=== PATIENT | female | born 1960 | race Caucasian/White ===

== ENCOUNTER 2016-08-06 08:43 | Day surgery (SDC) | payer OTHER ==
[2016-08-06] MEDS ORDERED: LACTATED RINGERS 1,000 ML IV SCH (09:00)
[2016-08-06] MEDS ORDERED: LACTATED RINGERS 1,000 ML ONE ×2 (09:31→10:23)
[2016-08-06] MEDS ORDERED: IV START KIT ONE (09:31)
[2016-08-06] MEDS ORDERED: PROPOFOL 20 ML IV ONE (11:09)
[2016-08-06] MEDS ORDERED: LIDOCAINE Viscous 2% 15 ML UDCUP ONE (11:11)
[2016-08-06 20:24] LABS: HELICOBACTER PYLORII DETECTION NEGATIVE (NEGATIVE)
--- NOTE | 2016-08-08 09:10 | SURGPATH ---
[facility] [address] [place] [id number] Patient Name: JIM PLEITEZ MR#: [id number] : 1960 Gender: F Specimen #: [id number] Collected: 08/06/2016 Received: 08/07/2016 Reported: 08/08/2016 Submitting Phys: JENNIE ADLER Copy To Phys: [facility] Clinical History / Pre-Operative Diagnosis: ABDOMINAL AND CHEST PAIN Specimen Source / Surgical Procedure Performed: #1-DUODENAL BIOPSY; #2-ANTRAL BIOPSY Interpretation: 1. DUODENUM, BIOPSY: - NO PATHOLOGIC ABNORMALITY 2. ANTRUM, BIOPSY: - NO PATHOLOGIC ABNORMALITY Electronically Signed Out Gucci Mcdonnell M.D. Gross Description: #1 The specimen is received in a formalin filled container labeled with the patient's name and "duodenal biopsy". A single lerma biopsy is 0.4 cm. Totally embedded in cassette #1. #2 The specimen is received in a formalin filled container labeled with the patient's name and "antral biopsy". A single lerma biopsy is 0.4 cm. Totally embedded in cassette #2. Alana Perez Microscopic Description: Microscopic performed. 1: 37589 2: 99529 R10.9
== END 2016-08-06 12:00 | disposition home or self-care (01) ==
LOC: SDC 08:43
PROVIDERS: ATTEND Family Medicine
PROC: 0DB98ZX Excision of Duodenum, Via Natural or Artificial Opening Endoscopic, Diagnostic (ICD-10-PCS; principal; 2016-08-06)
PROC: 0DB68ZX Excision of Stomach, Via Natural or Artificial Opening Endoscopic, Diagnostic (ICD-10-PCS; principal; 2016-08-06)
DX: K29.70 Gastritis, unspecified, without bleeding (principal); I10 Essential (primary) hypertension; F41.9 Anxiety disorder, unspecified
CPT/HCPCS: 87081; 43239; A9270; J7120 ×2